=== PATIENT | female | born 1985 | race African-American/Black ===

== ENCOUNTER 2016-10-21 08:18 | Emergency (ER) | payer OTHER ==
[2016-10-21 08:31] VITALS: BP 133/84; PULSE 86; TEMP 98.2; BMI 31.0
[2016-10-21] MEDS ORDERED: ALBUTEROL SO4 0.083% IH SOL 2.5 MG/3 ML VIAL.NEB. NEB ONE (08:50)
--- NOTE | 2016-10-21 08:54 | PDOC ---
History of Present Illness - General Chief Complaint: Cold Symptoms Stated Complaint: HEADACHE, CONGESTION, COUGH Time Seen by Provider: 10/21/16 08:33 History Source: Patient Exam Limitations: No Limitations - History of Present Illness Initial Comments: 10/21/16 08:51 31 yr female c/o 3 days headache stuffy nose body aches, cough and left ear pain. Pt states she took advil last night and mary alice seltzer . Pt denies fever, no vomiting or chills. LMP last month. Severity: reports: mild Past History - Past Medical History Allergies/Adverse Reactions: Allergies Allergy/AdvReac Type Severity Reaction Status Date / Time ceftriaxone sodium Allergy Verified 10/21/16 08:26 [From Rocephin] hydrocodone bitartrate Allergy Itching Verified 10/21/16 08:26 [From Vicodin] all fruits Allergy Uncoded 10/21/16 08:26 Home Medications: Ambulatory Orders Amoxicillin/Potassium Clav [Augmentin 875-125 Tablet] 1 each PO BID #20 tablet 10/21/16 Fluticasone Prop 0.05% Nasal [Flonase -] 1 - 2 spray NS DAILY #1 spray.pump 04/01 Asthma: Yes Suicide Attempt (Hx): No - Immunization History Immunization Up to Date: Yes - Psycho/Social/Smoking Cessation Hx Anxiety: No Suicidal Ideation: No Smoking Status: Yes Smoking History: Former smoker Years of Tobacco Use: 8 Have you smoked in the past 12 months: Yes Number of Cigarettes Smoked Daily: 1 If you are a former smoker, when did you quit?: 2016 Cigars Per Day: 0 Information on smoking cessation initiated: Yes 'Breaking Loose' booklet given: 04/21/14 Hx Alcohol Use: No Drug/Substance Use Hx: No Substance Use Type: Alcohol Hx Substance Use Treatment: No Respiratory Specific PMHX - Complaint Specific PMHX Bronchitis: Yes Pneumonia: Yes Review of Systems - Review of Systems Able to Perform ROS?: Yes Is the patient limited Urdu proficient: No Constitutional: Yes: Symptoms Reported HEENTM: Yes: Symptoms Reported Respiratory: Yes: Symptoms reported *Physical Exam - Vital Signs Last Vital Signs Temp Pulse Resp BP Pulse Ox 98.2 F 86 16 133/84 96 10/21/16 08:21 10/21/16 08:21 10/21/16 08:21 10/21/16 08:21 10/21/16 08:21 - Physical Exam General Appearance: Yes: Nourished, Appropriately Dressed HEENT: positive: EOMI, MARLON, Normal Voice, Pharyngeal Erythema, Nasal Congestion. negative: Tonsillar Exudate, Tonsillar Erythema Neck: positive: Supple. negative: Tender, Lymphadenopathy (R), Lymphadenopathy (L) Respiratory/Chest: positive: Chest Tender, Lungs Clear, Normal Breath Sounds Cardiovascular: positive: Regular Rhythm, Regular Rate Gastrointestinal/Abdominal: positive: Normal Bowel Sounds, Soft. negative: Tender Musculoskeletal: positive: Normal Inspection Extremity: positive: Normal Capillary Refill, Normal Inspection, Normal Range of Motion Integumentary: positive: Normal Color, Dry, Warm Neurologic: positive: Fully Oriented, Alert, Normal Mood/Affect, Normal Response , Motor Strength 5/5 *DC/Admit/Observation/Transfer Diagnosis at time of Disposition: Acute maxillary sinusitis Qualifiers: Recurrence: non-recurrent Qualified Code(s): J01.00 - Acute maxillary sinusitis , unspecified - Discharge Dispostion Disposition: HOME Condition at time of disposition: Good - Prescriptions Prescriptions: Amoxicillin/Potassium Clav [Augmentin 875-125 Tablet] 1 each PO BID #20 tablet Fluticasone Prop 0.05% Nasal [Flonase -] 1 - 2 spray NS DAILY #1 spray.pump - Patient Instructions Additional Instructions: take Augmentin as directed for sinus infection use the flonase as diorected to help with nasal congestion take motrin every 8hrs for pain or fever 600-800mg drink pleanty of water increase vitamin c and zinc in your diet to boost immune system follow with ENT if any worsening symptoms
[2016-10-21] MEDS ORDERED: KETOROLAC TROMETHAMINE 60 MG/2 ML VIAL IM ONE (09:00)
[2016-10-21] MEDS ORDERED: PSEUDOEPHEDRINE HCL 60 MG TABLET PO SCH (09:00)
[2016-10-21] MEDS ORDERED: PSEUDOEPHEDRINE HCL 60 MG TABLET ONE (09:03)
[2016-10-21] MEDS ORDERED: KETOROLAC TROMETHAMINE 60 MG/2 ML VIAL ONE (09:03)
== END 2016-10-21 09:57 | disposition home or self-care (01) ==
LOC: JER 08:18
DX: J01.00 Acute maxillary sinusitis, unspecified (principal); Z87.891 Personal history of nicotine dependence; J45.909 Unspecified asthma, uncomplicated
CPT/HCPCS: 71020-TC; 84703; 87804; 99281-25

== ENCOUNTER 2017-03-31 12:59 | Emergency (ER) | payer OTHER ==
[2017-03-31 13:03] VITALS: BP 113/83; PULSE 74; TEMP 98; BMI 30.8
[2017-03-31] MEDS ORDERED: SODIUM CHLORIDE 1,000 ML IV STA (13:42)
[2017-03-31] MEDS ORDERED: METOCLOPRAMIDE HCL INJECTION 10 MG/2 ML VIAL IVPB ONE (13:45)
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
[2017-03-31 13:56] LABS: BASOPHIL 1.1 % (0-2.0); EOSINOPHIL 4.3 % (0-4.5); MCH 31.2 pg (25.7-33.7); MCHC 32.8 g/dl (32.0-36.0); MEAN CELL VOLUME 95.3 fl (80-96); MEAN PLT VOLUME 9.2 fl (7.5-11.1); NEUTROPHILS 47.7 % (42.8-82.8); PLATELET COUNT 353 K/MM3 (134-434); WHITE BLOOD COUNT 9.6 K/mm3 (4.0-10.0)
[2017-03-31] MEDS ORDERED: METOCLOPRAMIDE HCL INJECTION 10 MG/2 ML VIAL ONE (13:56)
[2017-03-31 14:26] LABS: ALK PHOS 83 U/L (45-117); ANION GAP 9 (8-16); BILIRUBIN,TOTAL 0.4 mg/dL (0.2-1.0); CALCIUM 9.4 mg/dL (8.5-10.1); CO2 26 mmol/L (21-32); CREATININE 0.6 mg/dL (0.55-1.02); GLUCOSE,RANDOM 85 mg/dL (74-106); SGOT/AST 17 U/L (15-37); SGPT/ALT 28 U/L (12-78); TOT PROT 7.8 g/dl (6.4-8.2)
[2017-03-31 14:27] LABS: URINE APPEARANCE CLEAR; URINE BILIRUBIN NEGATIVE (NEGATIVE); URINE BLOOD NEGATIVE (NEGATIVE); URINE COLOR STRAW; URINE GLUCOSE (UA) NEGATIVE (NEGATIVE); URINE KETONE NEGATIVE (NEGATIVE); URINE LEUK ESTERASE NEGATIVE (NEGATIVE); URINE NITRITE NEGATIVE (NEGATIVE); URINE PROTEIN NEGATIVE (NEGATIVE); URINE UROBILINOGEN NEGATIVE mg/dL (0.2-1.0)
[2017-03-31] MEDS ORDERED: KETOROLAC TROMETHAMINE 30 MG/1 ML VIAL IVPUSH ONE (14:48)
[2017-03-31] MEDS ORDERED: KETOROLAC TROMETHAMINE 30 MG/1 ML VIAL ONE (14:52)
[2017-03-31] MEDS ORDERED: KETOROLAC TROMETHAMINE 30 MG/1 ML VIAL IVPB ONE (14:58)
== END 2017-03-31 15:28 | disposition home or self-care (01) ==
LOC: JERFT 12:59
PROC: 3E0333Z Introduction of Anti-inflammatory into Peripheral Vein, Percutaneous Approach (ICD-10-PCS; principal; 2017-03-31)
PROC: 3E033GC Introduction of Other Therapeutic Substance into Peripheral Vein, Percutaneous Approach (ICD-10-PCS; 2017-03-31)
PROC: 3E0337Z Introduction of Electrolytic and Water Balance Substance into Peripheral Vein, Percutaneous Approach (ICD-10-PCS; 2017-03-31)
DX: R51 Headache (principal)
CPT/HCPCS: 36415; 70450-TC; 80053; 81003; 84703; 85025; 99281-25

== ENCOUNTER 2017-07-28 19:51 | Emergency (ER) | payer OTHER ==
--- NOTE | 2017-07-28 20:04 | PDOC ---
Rapid Medical Evaluation Time Seen by Provider: 07/28/17 20:00 Medical Evaluation: Allergies Allergy/AdvReac Type Severity Reaction Status Date / Time ceftriaxone sodium Allergy Verified 03/31/17 13:04 [From Rocephin] hydrocodone bitartrate Allergy Itching Verified 03/31/17 13:04 [From Vicodin] all fruits Allergy Uncoded 03/31/17 13:04 07/28/17 20:01 The patient presents with a chief complaint of: hoarseness x 2 weeks , cough, hx asthma I have performed a brief in-person evaluation of this patient. Pertinent physical exam findings: no erythema, uvula midline, no thyroidmegaly , noted upper cervical lymphadenopathy, LCTA, vss I have ordered the following: none The patient will proceed to the ED for further evaluation. Discharge Disposition - Diagnosis Upper respiratory infection - Discharge Dispostion Disposition: HOME Condition at time of disposition: Good - Prescriptions Prescriptions: Methylprednisolone [Medrol Dose Aldo] 4 mg PO ASDIR #21 tablet - Referrals Referrals: Sean Mcpherson [Primary Care Provider] - - Patient Instructions Printed Discharge Instructions: DI for Viral Upper Respiratory Infection -- Adult Additional Instructions: Rest, drink plenty of fluids and take medications as prescribed. - Post Discharge Activity
[2017-07-28 20:06] VITALS: BP 110/69; PULSE 82; TEMP 98.3; BMI 30.8
[2017-07-28] MEDS ORDERED: IBUPROFEN 400 MG TABLET (FP) PO ONE ×2 (20:17→20:19)
--- NOTE | 2017-07-28 20:18 | PDOC ---
History of Present Illness - General Chief Complaint: Sore Throat Stated Complaint: PAIN Time Seen by Provider: 07/28/17 20:00 History Source: Patient - History of Present Illness Timing/Duration: reports: other (2 weeks) Associated Symptoms: reports: sore throat. denies: cough, earache, facial pain , fever/chills, nasal congestion, nasal drainage, wheezing Past History - Past Medical History Allergies/Adverse Reactions: Allergies Allergy/AdvReac Type Severity Reaction Status Date / Time ceftriaxone sodium Allergy Verified 07/28/17 20:03 [From Rocephin] hydrocodone bitartrate Allergy Itching Verified 07/28/17 20:03 [From Vicodin] all fruits Allergy Uncoded 03/31/17 13:04 Home Medications: Ambulatory Orders Methylprednisolone [Medrol Dose Aldo] 4 mg PO ASDIR #21 tablet 07/28/17 Asthma: Yes COPD: No - Immunization History Immunization Up to Date: Yes - Suicide/Smoking/Psychosocial Hx Smoking Status: Yes Smoking History: Never smoked Years of Tobacco Use: 8 Have you smoked in the past 12 months: No Number of Cigarettes Smoked Daily: 1 If you are a former smoker, when did you quit?: 9 months Cigars Per Day: 0 Information on smoking cessation initiated: No 'Breaking Loose' booklet given: 04/21/14 Hx Alcohol Use: No Drug/Substance Use Hx: No Substance Use Type: None Hx Substance Use Treatment: No Respiratory Specific PMHX - Complaint Specific PMHX Bronchitis: Yes Pneumonia: Yes Review of Systems - Review of Systems Constitutional: No: Chills, Fever HEENTM: Yes: Throat Pain. No: Ear Pain, Nose Congestion Respiratory: No: Cough, Shortness of Breath, Wheezing *Physical Exam - Vital Signs Last Vital Signs Temp Pulse Resp BP Pulse Ox 98.3 F 82 20 110/69 97 07/28/17 20:04 07/28/17 20:04 07/28/17 20:04 07/28/17 20:04 07/28/17 20:04 - Physical Exam General Appearance: Yes: Appropriately Dressed. No: Apparent Distress HEENT: positive: EOMI, Normal Voice, TMs Normal, Other (b/l tonsillar enlargement). negative: Tonsillar Exudate Neck: positive: Supple. negative: Lymphadenopathy (R), Lymphadenopathy (L) Respiratory/Chest: positive: Lungs Clear, Normal Breath Sounds. negative: Respiratory Distress Integumentary: positive: Dry, Warm Neurologic: positive: Fully Oriented, Alert, Normal Mood/Affect Medical Decision Making - Medical Decision Making 07/28/17 20:13 31-year-old female, no significant 31-year-old female, history of asthma, here with sore throat with hoarseness 2 weeks. No fever or chills. No shortness of breath or wheezing. Patient well-appearing and stable with possible tonsillar enlargement bilaterally. No exudates or uvular deviation. Rapid strep pending though m/l viral. Will consider Medrol Dosepak upon discharge 07/28/17 20:20 07/28/17 21:05 Rapid strep negative. DC with Medrol Dosepak *DC/Admit/Observation/Transfer Diagnosis at time of Disposition: Upper respiratory infection Qualifiers: URI type: unspecified viral URI Qualified Code(s): J06.9 - Acute upper respiratory infection, unspecified - Discharge Dispostion Disposition: HOME Condition at time of disposition: Good - Prescriptions Prescriptions: Methylprednisolone [Medrol Dose Aldo] 4 mg PO ASDIR #21 tablet - Referrals Referrals: Sean Mcpherson [Primary Care Provider] - - Patient Instructions Printed Discharge Instructions: DI for Viral Upper Respiratory Infection -- Adult Additional Instructions: Rest, drink plenty of fluids and take medications as prescribed. - Post Discharge Activity
== END 2017-07-28 21:06 | disposition home or self-care (01) ==
LOC: JERFT 19:51
DX: J06.9 Acute upper respiratory infection, unspecified (principal); B97.89 Other viral agents as the cause of diseases classified elsewhere
CPT/HCPCS: 87070; 87077; 87430; 99281-25

== ENCOUNTER 2017-12-15 23:17 | Emergency (ER) | payer OTHER ==
[2017-12-15 23:31] VITALS: BP 107/78; PULSE 96; TEMP 98.5; BMI 31.0
--- NOTE | 2017-12-16 00:33 | PDOC ---
History of Present Illness - General History Source: Patient Exam Limitations: No Limitations - History of Present Illness Initial Comments: 12/16/17 00:45 The patient is a 32 year old female with past medical history of asthma and ICU admission presents to the emergency department with dyspnea since 3-4 days ago. The patient reports associated symptoms of chest pain (tight in severity), subjective fever, and productive cough with light yellow-green sputum. The patient reports a burning sensation radiating from the throat to the chest but denies its acid reflux. The patient states taking amoxicillin and ibuprofen without any relief. The patient reports an episode of acid reflux about a week ago which resolved on its own. The patient states she pick her son up from school today due to son experiencing symptoms of cough and headaches. Denies any history of intubation. Allergies: Rocephin Social History: The patient reports occasional use of alcohol. Denies history of smoking or recreational drugs. <Trena Tellez - Last Filed: 12/16/17 01:35> <John Lai - Last Filed: 12/22/17 07:19> - General Chief Complaint: Asthma Stated Complaint: ASTHMA Time Seen by Provider: 12/16/17 00:32 Past History <Trena Tellez - Last Filed: 12/16/17 01:35> - Past Medical History Asthma: Yes COPD: No - Immunization History Immunization Up to Date: Yes - Suicide/Smoking/Psychosocial Hx Smoking Status: Yes Smoking History: Never smoked Years of Tobacco Use: 8 Have you smoked in the past 12 months: No Number of Cigarettes Smoked Daily: 1 If you are a former smoker, when did you quit?: 9 months Cigars Per Day: 0 Information on smoking cessation initiated: No 'Breaking Loose' booklet given: 04/21/14 Hx Alcohol Use: Yes Drug/Substance Use Hx: No Substance Use Type: None Hx Substance Use Treatment: No <John Lai - Last Filed: 12/22/17 07:19> - Past Medical History Allergies/Adverse Reactions: Allergies Allergy/AdvReac Type Severity Reaction Status Date / Time ceftriaxone sodium Allergy Verified 07/28/17 20:03 [From Rocephin] hydrocodone bitartrate Allergy Itching Verified 07/28/17 20:03 [From Vicodin] all fruits Allergy Uncoded 03/31/17 13:04 Home Medications: Ambulatory Orders Albuterol Sulfate Inhaler - [Ventolin HFA Inhaler -] 2 inh IH Q6H #1 inh Albuterol Sulfate Inhaler - [Ventolin Hfa Inhaler -] 1 - 2 inh PO QID 12/16/17 Cetirizine HCl [Zyrtec -] 10 mg PO DAILY 12/16/17 Methylprednisolone [Medrol Dose Aldo] 4 mg PO ASDIR #21 tablet 12/16/17 Mometasone/Formoterol [Dulera 100 Mcg/5 Mcg Inhaler] 2 inh IH BID 12/16/17 Respiratory Specific PMHX - Complaint Specific PMHX Bronchitis: Yes Pneumonia: Yes <John Lai - Last Filed: 12/22/17 07:19> Review of Systems - Review of Systems Able to Perform ROS?: Yes Comments:: 12/16/17 00:47 CONSTITUTIONAL: (+) subjective fever, no chills, no fatigue EYES: No visual changes ENT: No ear pain, no sore throat CARDIOVASCULAR: No chest pain, no palpitations RESPIRATORY: (+) SOB, chest pain/tightness, chest burning and productive cough. GI: No abdominal pain, no nausea, no vomiting, no constipation, no diarrhea GENITOURINARY: No dysuria, no frequency, no hematuria MUSKULOSKELETAL: No backpain, no joint pain, no myalgias SKIN: No rash NEURO: No headache <Trena Tellez - Last Filed: 12/16/17 01:35> *Physical Exam - Vital Signs Last Vital Signs Temp Pulse Resp BP Pulse Ox 98.5 F 96 H 21 107/78 98 12/15/17 23:25 12/15/17 23:25 12/15/17 23:25 12/15/17 23:25 12/15/17 23:25 - Physical Exam Comments: 12/16/17 00:48 CONSTITUTIONAL: (+) tachypneic and Dyspneic. well-nourished; in mild apparent distress HEAD: Normocephalic; atraumatic EYES: PERRL; EOM intact ENMT: External appears normal; normal oropharynx NECK: Supple; non-tender; no cervical lymphadenopathy CARD: Normal S1, S2; no murmurs, rubs, or gallops RESP: (+) Decreased air entry bilaterally. (+) End expiratory wheezing bilaterally. no rhonchi, or rales ABD: Soft, non-distended; non-tender; no palpable organomegaly, no palpable hernias EXT: Normal ROM in all four extremities; non-tender to palpation; distal pulses intact SKIN: Warm, dry, no rash NEURO: No focal neurological deficiencies. <Trena Tellez - Last Filed: 12/16/17 01:35> - Vital Signs Last Vital Signs Temp Pulse Resp BP Pulse Ox 98.5 F 96 H 21 107/78 98 12/15/17 23:25 12/15/17 23:25 12/15/17 23:25 12/15/17 23:25 12/15/17 23:25 <John Lai - Last Filed: 12/22/17 07:19> ED Treatment Course - LABORATORY CBC & Chemistry Diagram: 12/16/17 01:30 12/16/17 01:30 <John Lai - Last Filed: 12/22/17 07:19> Medical Decision Making - Medical Decision Making 12/16/17 01:58 Patient is a 32-year-old female with history of asthma (no history of intubations, however, history of ICU admission) who presents with signs and symptoms of acute asthma exacerbation likely precipitated by an acute infection. In the ER, patient is awake and alert, tachypneic and dyspneic initial evaluation, speaking in short phrases only, with decreased air entry bilaterally and expiratory wheezing bilaterally. Patient is afebrile with oxygen saturation of 96-97% room air. Patient's received continuous Combivent therapy, prednisone-50 mg by mouth as well as magnesium sulfate-2 g IV. We'll obtain chest x-ray to rule out pneumonia. We'll continue with albuterol and Atrovent as needed. EKG shows no evidence acute pathology, prolonged QTC is noted. Will obtain CBC/CMP to evaluate for electrolyte abnormalities. pt ruled out for PE by PERC rule. Will endorse to Dr. martinez for final disposition. <John Lai - Last Filed: 12/22/17 07:19> *DC/Admit/Observation/Transfer <Trena Tellez - Last Filed: 12/16/17 01:35> - Attestations Physician Attestion: 12/16/17 01:58 The documentation was prepared by the scribe under my direct supervision. I have reviewed the documentation which correctly represents the findings, medical decision-making and critical action taken by me. <John Lai - Last Filed: 12/22/17 07:19> Diagnosis at time of Disposition: Exacerbation of asthma - Discharge Dispostion Disposition: HOME Condition at time of disposition: Improved - Prescriptions Prescriptions: Albuterol Sulfate Inhaler - [Ventolin HFA Inhaler -] 2 inh IH Q6H #1 inh Methylprednisolone [Medrol Dose Aldo] 4 mg PO ASDIR #21 tablet - Referrals Referrals: Sean Mcpherson [Primary Care Provider] - - Patient Instructions Printed Discharge Instructions: Asthma -- Adult - Post Discharge Activity Forms/Work/School Notes: Back to Work
[2017-12-16] MEDS ORDERED: ALBUTEROL SO4 2.5/IPRATROPIUM 0.5 INH SOL 3 ML VIAL.NEB. NEB ONE (00:37)
[2017-12-16] MEDS ORDERED: predniSONE 20 MG TABLET (UD) PO ONE (00:38)
[2017-12-16] MEDS ORDERED: IBUPROFEN 400 MG TABLET (FP) PO ONE ×2 (00:45→00:46)
[2017-12-16] MEDS ORDERED: RANITIDINE HCL 150 MG TABLET (FP) PO ONE (01:22)
[2017-12-16] MEDS ORDERED: MAGNESIUM SULF 50% (8.12 MEQ/2 ML-1 GM VIAL) IVPB ONE (01:22)
[2017-12-16] MEDS ORDERED: MAG HYDROX/AL HYDROX/SIMETH -MYLANTA- ORAL SUSPENSION PO ONE (01:22)
[2017-12-16] MEDS ORDERED: MAG HYDROX/AL HYDROX/SIMETH 30 ML UNIT-DOSE CUP ONE (01:23)
[2017-12-16] MEDS ORDERED: FAMOTIDINE 20 MG/50 ML IVPB 20 MG/50 ML MG IVPB ONE (01:23)
[2017-12-16] MEDS ORDERED: RANITIDINE HCL 150 MG TABLET (FP) ONE (01:23)
[2017-12-16] MEDS ORDERED: MAGNESIUM SULF 50% (8.12 MEQ/2 ML-1 GM VIAL) ONE (01:23)
[2017-12-16 01:44] LABS: BASO % 0.9 % (0-2.0); EOS % 6.4 % (0-4.5); HEMATOCRIT 38.5 % (32.4-45.2); HEMOGLOBIN 13.1 GM/dL (10.7-15.3); LYMPH % 33.9 % (8-40); MCH 32.3 pg (25.7-33.7); MCHC 34.1 g/dl (32.0-36.0); MEAN CELL VOLUME 94.7 fl (80-96); MEAN PLT VOLUME 9.2 fl (7.5-11.1); MONO % 10.5 % (3.8-10.2); NEUT % 48.3 % (42.8-82.8); PLATELET COUNT 252 K/MM3 (134-434); RBC 4.06 M/mm3 (3.60-5.2); RDW 12.1 % (11.6-15.6); WHITE BLOOD COUNT 7.1 K/mm3 (4.0-10.0)
[2017-12-16] MEDS ORDERED: ALBUTEROL SO4 0.083% IH SOL 2.5 MG/3 ML VIAL.NEB. NEB ONE ×2 (02:00→02:08)
[2017-12-16 02:04] LABS: ALBUMIN 3.9 g/dl (3.4-5.0); ANION GAP 13 (8-16); BILIRUBIN,TOTAL 0.5 mg/dL (0.2-1.0); BLOOD UREA NITROGEN 13 mg/dL (7-18); CHLORIDE 102 mmol/L (98-107); CO2 21 mmol/L (21-32); CREATININE 0.8 mg/dL (0.55-1.02); GLUCOSE,RANDOM 105 mg/dL (74-106); SGPT/ALT 16 U/L (12-78); SODIUM 136 mmol/L (136-145); TOT PROT 7.8 g/dl (6.4-8.2)
[2017-12-16 02:05] LABS: ALK PHOS 72 U/L (45-117)
[2017-12-16 02:06] LABS: MAGNESIUM 1.9 mg/dL (1.8-2.4); POTASSIUM 3.6 mmol/L (3.5-5.1); SGOT/AST 18 U/L (15-37)
--- NOTE | 2017-12-16 03:29 | PDOC ---
*Physical Exam - Vital Signs Last Vital Signs Temp Pulse Resp BP Pulse Ox 98.5 F 96 H 21 107/78 97 12/15/17 23:25 12/15/17 23:25 12/15/17 23:25 12/15/17 23:25 12/16/17 01:52 ED Treatment Course - LABORATORY CBC & Chemistry Diagram: 12/16/17 01:30 12/16/17 01:30 - ADDITIONAL ORDERS Additional order review: Laboratory Results 12/16/17 12/16/17 01:30 01:00 Sodium 136 Potassium 3.6 Chloride 102 Carbon Dioxide 21 Anion Gap 13 BUN 13 Creatinine 0.8 Creat Clearance w eGFR > 60 Random Glucose 105 Calcium 9.0 Magnesium 1.9 Total Bilirubin 0.5 D AST 18 ALT 16 Alkaline Phosphatase 72 Total Protein 7.8 Albumin 3.9 Urine HCG, Qual Negative 12/16/17 01:30 RBC 4.06 MCV 94.7 MCHC 34.1 RDW 12.1 MPV 9.2 Neutrophils % 48.3 Lymphocytes % 33.9 Monocytes % 10.5 H Eosinophils % 6.4 H Basophils % 0.9 - Medications Given in the ED: ED Medications Discontinued Medications Generic Name Dose Route Start Last Admin Trade Name Freq PRN Reason Stop Dose Admin Al Hydroxide/Mg Hydroxide 30 ml 12/16/17 01:22 12/16/17 01:40 Mylanta Suspension - PO 12/16/17 01:23 30 ml ONCE ONE Administration Albuterol Sulfate 1 amp 12/16/17 02:00 12/16/17 02:32 Ventolin 0.083% Nebulizer Soln - NEB 12/16/17 02:01 1 amp ONCE ONE Administration Albuterol/Ipratropium 3 amp 12/16/17 00:37 12/16/17 00:40 Duoneb - NEB 12/16/17 00:38 3 amp ONCE ONE Administration Ibuprofen 400 mg 12/16/17 00:46 12/16/17 01:20 Motrin - PO 12/16/17 00:47 400 mg ONCE ONE Administration Magnesium Sulfate 2 gm 12/16/17 01:22 12/16/17 01:40 Magnesium Sulfate IVPB 12/16/17 01:23 2 gm ONCE ONE Administration Prednisone 50 mg 12/16/17 00:38 12/16/17 00:40 Deltasone - PO 12/16/17 00:39 50 mg ONCE ONE Administration Ranitidine HCl 150 mg 12/16/17 01:22 12/16/17 01:40 Zantac - PO 12/16/17 01:23 150 mg ONCE ONE Administration Medical Decision Making - Medical Decision Making 12/16/17 03:28 Pt feels better. NO dyspnea of exertion or conversational dyspnea, Will discharge *DC/Admit/Observation/Transfer Diagnosis at time of Disposition: Exacerbation of asthma - Discharge Dispostion Disposition: HOME Condition at time of disposition: Improved Admit: No - Referrals Referrals: Sean Mcpherson [Primary Care Provider] - - Patient Instructions Printed Discharge Instructions: Asthma -- Adult - Post Discharge Activity Forms/Work/School Notes: Back to Work
--- NOTE | 2017-12-16 11:26 | EKG ---
Test Reason : Blood Pressure : / mmHG Vent. Rate : 096 BPM Atrial Rate : 096 BPM P-R Int : 124 ms QRS Dur : 078 ms QT Int : 390 ms P-R-T Axes : 067 067 029 degrees QTc Int : 492 ms NORMAL SINUS RHYTHM WITH SINUS ARRHYTHMIA POSSIBLE LEFT ATRIAL ENLARGEMENT PROLONGED QT ABNORMAL ECG WHEN COMPARED WITH ECG OF 20-DEC-2015 09:04, NO SIGNIFICANT CHANGE WAS FOUND Confirmed by DRAGAN BIANCHI, LATONIA ([id number]) on 12/16/2017 11:26:44 AM Referred By: Confirmed By:LATONIA ARCHIBALD MD
== END 2017-12-16 03:43 | disposition home or self-care (01) ==
LOC: JER 23:17
PROC: 3E0F7GC Introduction of Other Therapeutic Substance into Respiratory Tract, Via Natural or Artificial Opening (ICD-10-PCS; principal; 2017-12-15)
PROC: 3E033GC Introduction of Other Therapeutic Substance into Peripheral Vein, Percutaneous Approach (ICD-10-PCS; 2017-12-15)
DX: J45.41 Moderate persistent asthma with (acute) exacerbation (principal); Z87.891 Personal history of nicotine dependence
CPT/HCPCS: 36415; 71046-TC-FY; 80053; 83735; 84703; 85025; 93005; 93010; 99282-25; J7620

== ENCOUNTER 2018-04-27 15:39 | Emergency (ER) | payer OTHER ==
[2018-04-27 15:45] VITALS: BP 115/71; PULSE 81; TEMP 98.2; BMI 31.4
--- NOTE | 2018-04-27 16:16 | PDOC ---
History of Present Illness - General Chief Complaint: Vaginal Sxs Stated Complaint: FATIGUE, WHITE VAG DISCHARGE Time Seen by Provider: 04/27/18 15:44 History Source: Patient Exam Limitations: No Limitations - History of Present Illness Travel History: No Initial Comments: 04/27/18 16:14 32 YR FEMALE WITH c/o white thin vaginal discharge and feeling "fatigued" for one month. Pt has not seen her doctor. Pt has history of asthma, no abd pain no diarrhea. Pt has IUD for 2 yrs suffers from chronic BV. no abnormal vaginal or rectal bleeding. Timing/Duration: reports: constant Quality: reports: mild Pain Radiation: reports: no radiation Activities at Onset: reports: none Past History - Past Medical History Allergies/Adverse Reactions: Allergies Allergy/AdvReac Type Severity Reaction Status Date / Time ceftriaxone sodium Allergy Verified 04/27/18 15:57 [From Rocephin] hydrocodone bitartrate Allergy Itching Verified 04/27/18 15:57 [From Vicodin] all fruits Allergy Uncoded 04/27/18 15:57 Home Medications: Ambulatory Orders metroNIDAZOLE 0.75% VAG. GEL [Metrogel 0.75% *Vaginal Gel* -] 1 applic VG HS #5 tube 04/27/18 Asthma: Yes COPD: No DVT: No - Immunization History Immunization Up to Date: Yes - Suicide/Smoking/Psychosocial Hx Smoking Status: Yes Smoking History: Never smoked Years of Tobacco Use: 8 Have you smoked in the past 12 months: No Number of Cigarettes Smoked Daily: 0 If you are a former smoker, when did you quit?: 9 months Cigars Per Day: 0 Information on smoking cessation initiated: Yes 'Breaking Loose' booklet given: 04/21/14 Hx Alcohol Use: No Drug/Substance Use Hx: No Substance Use Type: None Hx Substance Use Treatment: No Abd/GI Specific PMHX - Complaint Specific PMHX Colitis: No GERD: No GI Ulcer Disease: No Review of Systems - Review of Systems Able to Perform ROS?: Yes Is the patient limited Kyrgyz proficient: No Constitutional: No: Symptoms Reported HEENTM: No: Symptoms Reported Respiratory: No: Symptoms reported Cardiac (ROS): No: Symptoms Reported ABD/GI: No: Symptoms Reported : Yes: Symptoms Reported *Physical Exam - Vital Signs Last Vital Signs Temp Pulse Resp BP Pulse Ox 98.2 F 81 18 115/71 97 04/27/18 15:41 04/27/18 15:41 04/27/18 15:41 04/27/18 15:41 04/27/18 15:41 - Physical Exam General Appearance: Yes: Nourished, Appropriately Dressed HEENT: positive: EOMI, MARLON, TMs Normal, Pharynx Normal, Other (conjunctiva pink ) Neck: positive: Supple. negative: Tender Respiratory/Chest: positive: Lungs Clear, Normal Breath Sounds. negative: Wheezing Cardiovascular: positive: Regular Rhythm, Regular Rate Female Pelvic Exam: positive: discharge (scant white). negative: CMT, adnexal tenderness Gastrointestinal/Abdominal: positive: Normal Bowel Sounds, Soft. 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
[2018-04-27 16:28] LABS: BASO % 0.9 % (0-2.0); EOS % 5.6 % (0-4.5); HEMATOCRIT 38.3 % (32.4-45.2); HEMOGLOBIN 12.8 GM/dL (10.7-15.3); LYMPH % 31.2 % (8-40); MCH 31.6 pg (25.7-33.7); MCHC 33.5 g/dl (32.0-36.0); MEAN CELL VOLUME 94.4 fl (80-96); MEAN PLT VOLUME 9.2 fl (7.5-11.1); MONO % 9.1 % (3.8-10.2); NEUT % 53.2 % (42.8-82.8); PLATELET COUNT 313 K/MM3 (134-434); RBC 4.05 M/mm3 (3.60-5.2); RDW 12.3 % (11.6-15.6); WHITE BLOOD COUNT 10.4 K/mm3 (4.0-10.0)
[2018-04-27 16:34] LABS: URINE APPEARANCE CLEAR; URINE BILIRUBIN NEGATIVE (<2.0 mg/dL); URINE COLOR YELLOW; URINE GLUCOSE (UA) NEGATIVE (NEGATIVE); URINE KETONE NEGATIVE (NEGATIVE); URINE NITRITE NEGATIVE (NEGATIVE); URINE PROTEIN NEGATIVE (NEGATIVE)
[2018-04-27 16:35] LABS: HCG,QUALITATIVE URINE Negative; URINE LEUK ESTERASE 1+ (NEGATIVE)
[2018-04-27 16:38] LABS: EPI CELLS FEW /HPF (FEW); URINE BACTERIA RARE /hpf (NONE SEEN); URINE MUCUS RARE
[2018-04-27 16:57] LABS: ALBUMIN 3.6 g/dl (3.4-5.0); ANION GAP 6 MMOL/L (8-16); BILIRUBIN,TOTAL 0.4 mg/dL (0.2-1.0); BLOOD UREA NITROGEN 14 mg/dL (7-18); CHLORIDE 104 mmol/L (98-107); CO2 27 mmol/L (21-32); CREATININE 0.7 mg/dL (0.55-1.02); GLUCOSE,RANDOM 84 mg/dL (74-106); POTASSIUM 4.2 mmol/L (3.5-5.1); SGOT/AST 13 U/L (15-37); SGPT/ALT 23 U/L (12-78); SODIUM 137 mmol/L (136-145); TOT PROT 7.3 g/dl (6.4-8.2)
[2018-04-27 16:58] LABS: ALK PHOS 75 U/L (45-117)
== END 2018-04-27 17:08 | disposition home or self-care (01) ==
LOC: JERFT 15:39
DX: R53.83 Other fatigue (principal); N89.8 Other specified noninflammatory disorders of vagina; Z87.891 Personal history of nicotine dependence
CPT/HCPCS: 36415; 80053; 81003; 81015; 84703; 85025; 87070; 87086; 87205; 99281-25

== ENCOUNTER 2018-07-12 22:32 | Emergency (ER) | payer OTHER ==
[2018-07-12 22:43] VITALS: BMI 30.8
--- NOTE | 2018-07-12 23:25 | PDOC ---
History of Present Illness - General Chief Complaint: Injury Stated Complaint: LACERATION Time Seen by Provider: 07/12/18 23:25 History Source: Patient - History of Present Illness Initial Comments: 07/13/18 01:28 32 year old female c/o left thumb jammed in the door reports that proximal end of nail lifted off the bed. denies numbness to distal end. last tetanus up to date. no pmhx Past History - Past Medical History Allergies/Adverse Reactions: Allergies Allergy/AdvReac Type Severity Reaction Status Date / Time ceftriaxone sodium Allergy Verified 07/12/18 22:43 [From Rocephin] hydrocodone bitartrate Allergy Itching Verified 07/12/18 22:43 [From Vicodin] all fruits Allergy Uncoded 07/12/18 22:43 Home Medications: Ambulatory Orders Albuterol 0.083% Nebulizer Jazzmine [Ventolin 0.083% Nebulizer Soln -] 1 neb NEB Q6H PRN 07/13/18 Ibuprofen 600 mg PO QID PRN #20 tablet 07/13/18 Mometasone/Formoterol [Dulera 100 Mcg/5 Mcg Inhaler] 2 inh IH BID 07/13/18 Oxycodone HCl/Acetaminophen [Percocet 5-325 mg Tablet] 1 tab PO Q6H PRN #5 tablet MDD 4 07/13/18 Sulfamethoxazole/Trimethoprim [Bactrim Ds -] 1 tab PO BID #10 tablet 07/13/18 Asthma: Yes COPD: No DVT: No - Immunization History Immunization Up to Date: Yes - Suicide/Smoking/Psychosocial Hx Smoking Status: Yes Smoking History: Never smoked Years of Tobacco Use: 8 Have you smoked in the past 12 months: No Number of Cigarettes Smoked Daily: 0 If you are a former smoker, when did you quit?: 9 months Cigars Per Day: 0 Information on smoking cessation initiated: No 'Breaking Loose' booklet given: 04/21/14 Hx Alcohol Use: No Drug/Substance Use Hx: No Substance Use Type: None Hx Substance Use Treatment: No Review of Systems - Review of Systems Able to Perform ROS?: Yes Is the patient limited Ecuadorean proficient: No Integumentary: Yes: Other (nail avulsion) *Physical Exam - Vital Signs Last Vital Signs Temp Pulse Resp BP Pulse Ox 98.2 F 90 16 124/89 100 07/12/18 22:41 11/27/18 22:41 07/12/18 22:41 07/12/18 22:41 07/12/18 22:41 - Physical Exam General Appearance: Yes: Appropriately Dressed Extremity: positive: Other (left thumb nail avulsion. bleeding controlled) Integumentary: positive: Normal Color, Dry, Warm Neurologic: positive: Fully Oriented, Alert, Normal Mood/Affect Moderate Sedation - Procedure Monitoring Vital Signs: Procedure Monitoring Vital Signs Temperature 98.2 F 07/12/18 22:41 Pulse Rate 90 07/12/18 22:41 Respiratory Rate 16 07/12/18 22:41 Blood Pressure 124/89 07/12/18 22:41 O2 Sat by Pulse Oximetry (%) 100 07/12/18 22:41 Procedures - Consent Consent obtained: Verbal - Laceration/Wound Repair Left Finger Wound Explored: clean (nail bed pushed out with minimal bleeding around the nail. + distal sensation and pain, full rom. ) Irrigated w/ Saline: Yes Betadine Prep: Yes Anesthesia: 2% Lidocaine Amount of Anesthetic (ccs): 2 Wound Repaired With: Dermabond (applied around scar nail bed) Type of Splint Applied: finger splint Sling Applied: Yes Progress: 07/13/18 01:36 wound irrigated dermabond applied ED Treatment Course - RADIOLOGY Comments: xray negative Progress Note - Progress Note Progress Note: A: nail avulsion P: see procedure note. empirically treated with bactrim due to cephalosporin allergy. *DC/Admit/Observation/Transfer Diagnosis at time of Disposition: Avulsion of nail bed Injury to thumb (nail) Qualifiers: Encounter type: initial encounter Laterality: left Qualified Code(s): S69.92XA - Unspecified injury of left wrist, hand and finger(s), initial encounter - Discharge Dispostion Disposition: HOME Condition at time of disposition: Improved - Prescriptions Prescriptions: Ibuprofen 600 mg PO QID PRN #20 tablet PRN Reason: Pain Oxycodone HCl/Acetaminophen [Percocet 5-325 mg Tablet] 1 tab PO Q6H PRN #5 tablet MDD 4 PRN Reason: Pain Level 6-10 Sulfamethoxazole/Trimethoprim [Bactrim Ds -] 1 tab PO BID #10 tablet - Referrals Referrals: Jose Guadalupe Alexander MD [Staff Physician] - - Patient Instructions Printed Discharge Instructions: DI for Nail Avulsion Injury Additional Instructions: keep wound clean and dry. take Bactrim as prescribed follow up with your hand doctor as soon as possible. monitor for signs of infections increased pain. Additional Instructions: * Please call your personal physician to report your Emergency Department visit and to report your progress, if any. * If there is no improvement in symptoms in 2 days call your physician. * Return to the Emergency Department for any worsening symptoms. - Post Discharge Activity Forms/Work/School Notes: Back to Work
[2018-07-12] MEDS ORDERED: KETOROLAC TROMETHAMINE 30 MG/1 ML VIAL IM ONE (23:56)
[2018-07-13] MEDS ORDERED: KETOROLAC TROMETHAMINE 30 MG/1 ML VIAL ONE (00:22)
[2018-07-13] MEDS ORDERED: LIDOCAINE HCL 2% (50ML VIAL) SQ ONE (00:32)
[2018-07-13] MEDS ORDERED: LIDOCAINE HCL 2% (20ML MULTI-DOSE VIAL) NR ONE (00:37)
[2018-07-13 02:17] VITALS: BP 118/80; PULSE 88; TEMP 98.5
== END 2018-07-13 02:14 | disposition home or self-care (01) ==
LOC: JER 22:32
PROC: 0HQGXZZ Repair Left Hand Skin, External Approach (ICD-10-PCS; principal; 2018-07-12)
PROC: 2W3HX1Z Immobilization of Left Thumb using Splint (ICD-10-PCS; 2018-07-12)
DX: S61.112A Laceration without foreign body of left thumb with damage to nail, initial encounter (principal); W23.0XXA Caught, crushed, jammed, or pinched between moving objects, initial encounter; Y93.89 Activity, other specified; Y92.89 Other specified places as the place of occurrence of the external cause; Y99.8 Other external cause status
CPT/HCPCS: 12001; 29130; 73140-TC-LT-FY; 99282-25

== ENCOUNTER 2018-10-04 08:27 | Emergency (ER) | payer OTHER ==
[2018-10-04 08:42] VITALS: BP 124/75; PULSE 76; TEMP 98.6; BMI 31.2
--- NOTE | 2018-10-04 08:45 | PDOC ---
History of Present Illness - General Chief Complaint: Eye Problem Stated Complaint: RT EYE SWOLLEN Time Seen by Provider: 10/04/18 08:42 History Source: Patient Exam Limitations: No Limitations - History of Present Illness Initial Comments: 10/04/18 08:44 Pt is a 33 y/o F who presents to the ED with R upper eyelid pain for 3 weeks. Pt states she has seen her PMD for this issue with little relief of her symptoms. She states that the bump on the eye is getting bigger. States that she feels a bump there. Pt is taking erythromycin ointment and using warm water soaks. . Denies fevers, chills, visual changes, diploplia, spots and floaters. Past History - Travel Traveled outside of the country in the last 30 days: No Close contact w/someone who was outside of country & ill: No - Past Medical History Allergies/Adverse Reactions: Allergies Allergy/AdvReac Type Severity Reaction Status Date / Time ceftriaxone sodium Allergy Verified 10/04/18 08:38 [From Rocephin] hydrocodone bitartrate Allergy Itching Verified 10/04/18 08:38 [From Vicodin] all fruits Allergy Uncoded 10/04/18 08:38 Home Medications: Ambulatory Orders Albuterol 0.083% Nebulizer Jazzmine [Ventolin 0.083% Nebulizer Soln -] 1 neb NEB Q6H PRN 07/13/18 Mometasone/Formoterol [Dulera 100 Mcg/5 Mcg Inhaler] 2 inh IH BID 07/13/18 Sulfamethoxazole/Trimethoprim [Bactrim Ds -] 1 tab PO BID #14 tablet 10/04/18 Asthma: Yes COPD: No DVT: No - Immunization History Immunization Up to Date: Yes - Suicide/Smoking/Psychosocial Hx Smoking Status: Yes Smoking History: Never smoked Years of Tobacco Use: 8 Have you smoked in the past 12 months: No Number of Cigarettes Smoked Daily: 0 If you are a former smoker, when did you quit?: 9 months Cigars Per Day: 0 'Breaking Loose' booklet given: 04/21/14 Hx Alcohol Use: No Drug/Substance Use Hx: No Substance Use Type: None Hx Substance Use Treatment: No Review of Systems - Review of Systems Able to Perform ROS?: Yes Comments:: 10/04/18 08:43 CONSTITUTIONAL: Absent: fever, chills, diaphoresis, generalized weakness, malaise, loss of appetite HEENT: Present: pain to R upper eye lid Absent: rhinorrhea, nasal congestion, throat pain, throat swelling, difficulty swallowing, mouth swelling, ear pain, visual Changes CARDIOVASCULAR: Absent: chest pain, loss of consciousness, palpitations, irregular heart rate, peripheral edema RESPIRATORY: Absent: cough, shortness of breath, dyspnea with exertion, orthopnea, wheezing, stridor, hemoptysis GASTROINTESTINAL: Absent: abdominal pain, abdominal distension, nausea, vomiting, diarrhea, constipation, melena, hematochezia GENITOURINARY: Absent: dysuria, frequency, urgency, hesitancy, hematuria, flank pain, genital pain MUSCULOSKELETAL: Absent: myalgia, arthralgia, joint swelling SKIN: Absent: rash, itching, pallor HEMATOLOGIC/IMMUNOLOGIC: Absent: easy bleeding, easy bruising, lymphadenopathy, frequent infections ENDOCRINE: Absent: unexplained weight gain, unexplained weight loss, heat intolerance, cold intolerance NEUROLOGIC: Absent: headache, focal weakness or paresthesias, dizziness, unsteady gait, seizure, mental status changes, bladder or bowel incontinence PSYCHIATRIC: Absent: anxiety, depression, suicidal or homicidal ideation, hallucinations. Is the patient limited Slovak proficient: No *Physical Exam - Vital Signs Last Vital Signs Temp Pulse Resp BP Pulse Ox 98.6 F 76 16 124/75 99 10/04/18 08:38 10/04/18 08:38 10/04/18 08:38 10/04/18 08:38 10/04/18 08:38 - Physical Exam Comments: 10/04/18 08:43 GENERAL: The patient is awake, alert, and fully oriented, in no acute distress. HEAD: Normal with no signs of trauma. EYES: Pupils equal, round and reactive to light, extraocular movements intact, sclera anicteric, conjunctiva clear. Sty to the upper R eyelid with a head. Associated redness surrounding the sty. EXTREMITIES: Normal range of motion, no edema. NEUROLOGICAL: Normal speech, normal gait. PSYCH: Normal mood, normal affect. SKIN: Warm, Dry, normal turgor, no rashes or lesions noted. Moderate Sedation - Procedure Monitoring Vital Signs: Procedure Monitoring Vital Signs Temperature 98.6 F 10/04/18 08:38 Pulse Rate 76 10/04/18 08:38 Respiratory Rate 16 10/04/18 08:38 Blood Pressure 124/75 10/04/18 08:38 O2 Sat by Pulse Oximetry (%) 99 10/04/18 08:38 Medical Decision Making - Medical Decision Making 10/04/18 09:10 Pt is a 33 y/o F who presents to the ED with a sty for three weeks to the R upper eyelid -On exam pt with a sty to the R upper eyelid with the beginning of the formation of a head of pus -Pt on topical abx. Will initiate oral abx at this time as this could be a possible skin infection -Ophthalmology referral given -DC home -I discussed the physical exam findings, ancillary test results and final diagnoses with the patient. I answered all of the patient's questions. The patient was satisfied with the care received and felt comfortable with the discharge plan and treatment plan. The Patient agrees to follow up with the primary care physician/specialist within 24-72 hours. Return precautions were given. *DC/Admit/Observation/Transfer Diagnosis at time of Disposition: Stye external Qualifiers: Laterality: right Eyelid: upper Qualified Code(s): H00.011 - Hordeolum externum right upper eyelid - Discharge Dispostion Disposition: HOME Condition at time of disposition: Stable Decision to Admit order: No - Prescriptions Prescriptions: Sulfamethoxazole/Trimethoprim [Bactrim Ds -] 1 tab PO BID #14 tablet - Referrals Referrals: Yas Valdivia MD [Primary Care Provider] - Alyson Nicolas MD [Staff Physician] - Jose E Dumont MD [Staff Physician] - - Patient Instructions Printed Discharge Instructions: DI for Hordeolum Additional Instructions: You have a stye or infection of the upper lid of your eye. Please take the oral antibiotics twice a day for one week. Continue to do the warm water soaks 4-5 times a day. You may also use a topical antibiotic twice a day. This may drain on its own. Please do not poke or rub the eye He may take Motrin 600 mg every 6 hours as needed for pain. Please follow-up with an director of staff development. A referral has been provided for you. Please also contact your insurance company to find a provider. Return to the ED for any new or worsening symptoms. - Post Discharge Activity Forms/Work/School Notes: Back to Work
== END 2018-10-04 09:15 | disposition home or self-care (01) ==
LOC: JERFT 08:27
DX: H00.011 Hordeolum externum right upper eyelid (principal)
CPT/HCPCS: 99281-25

== ENCOUNTER 2019-01-22 15:23 | Emergency (ER) | payer OTHER ==
[2019-01-22 15:41] VITALS: BP 110/74; PULSE 89; TEMP 98.5; BMI 31.6
[2019-01-22] MEDS ORDERED: ALBUTEROL SO4 2.5/IPRATROPIUM 0.5 INH SOL 3 ML VIAL.NEB. NEB ONE ×2 (15:57→16:00)
[2019-01-22] MEDS ORDERED: predniSONE 20 MG TABLET (UD) PO ONE (15:57)
[2019-01-22] MEDS ORDERED: predniSONE 20 MG TABLET (UD) ONE (16:00)
--- NOTE | 2019-01-22 16:44 | PDOC ---
History of Present Illness - General Chief Complaint: Asthma Stated Complaint: ASTHMA / SOB Time Seen by Provider: 01/22/19 15:45 History Source: Patient Exam Limitations: No Limitations - History of Present Illness Initial Comments: 01/22/19 16:09 33-year-old female presents the emergency room with complaints of difficulty breathing cough and wheezing for the past 2 days. Patient states has been using her inhaler and her nebulizer without improvement. Patient denies fever, chills but states has been coughing for the past week and feels she may have an infectious process. Timing/Duration: reports: other (2) Severity: reports: mild Possible Cause: Yes: occasional episodes Modifying Factors: improves with: activity, coughing Associated Symptoms: reports: cough, shortness of breath, wheezing Past History - Travel Traveled outside of the country in the last 30 days: No Close contact w/someone who was outside of country & ill: No - Past Medical History Allergies/Adverse Reactions: Allergies Allergy/AdvReac Type Severity Reaction Status Date / Time ceftriaxone sodium Allergy Verified 01/22/19 15:41 [From Rocephin] hydrocodone bitartrate Allergy Itching Verified 01/22/19 15:41 [From Vicodin] all fruits Allergy Uncoded 01/22/19 15:41 Home Medications: Ambulatory Orders Albuterol 0.083% Nebulizer Jazzmine [Ventolin 0.083% Nebulizer Soln -] 1 neb NEB Q6H PRN 07/13/18 Cetirizine HCl [Zyrtec -] 10 mg PO DAILY 01/22/19 Asthma: Yes COPD: No DVT: No - Immunization History Immunization Up to Date: Yes - Suicide/Smoking/Psychosocial Hx Smoking Status: Yes Smoking History: Never smoked Years of Tobacco Use: 8 Have you smoked in the past 12 months: No Number of Cigarettes Smoked Daily: 0 If you are a former smoker, when did you quit?: 9 months Cigars Per Day: 0 'Breaking Loose' booklet given: 04/21/14 Hx Alcohol Use: No Drug/Substance Use Hx: No Substance Use Type: None Hx Substance Use Treatment: No Patient Lives Alone: No Lives with/in: spouse/SO Respiratory Specific PMHX - Complaint Specific PMHX Bronchitis: Yes Pneumonia: Yes Review of Systems - Review of Systems Able to Perform ROS?: No Is the patient limited Albanian proficient: No Respiratory: Yes: Cough, Shortness of Breath, Wheezing Cardiac (ROS): No: Symptoms Reported ABD/GI: No: Symptoms Reported : No: Symptoms Reported Musculoskeletal: No: Symptoms Reported Integumentary: No: Symptoms Reported Neurological: No: Symptoms reported Endocrine: No: Symptoms Reported *Physical Exam - Vital Signs Last Vital Signs Temp Pulse Resp BP Pulse Ox 98.5 F 89 18 110/74 99 01/22/19 15:39 01/22/19 15:39 01/22/19 15:39 01/22/19 15:39 01/22/19 15:39 - Physical Exam General Appearance: Yes: Nourished, Appropriately Dressed. No: Apparent Distress HEENT: positive: EOMI, MARLON, TMs Normal, Pharynx Normal. negative: Pale Conjunctivae Neck: positive: Supple Respiratory/Chest: positive: Accessory Muscle Use, Wheezing (on insp to right base) Cardiovascular: positive: Regular Rhythm, Regular Rate. negative: Murmur Gastrointestinal/Abdominal: positive: Soft. negative: Tenderness Integumentary: positive: Normal Color, Warm, Moist Neurologic: positive: Motor Strength 5/5 (ambulatory) ED Treatment Course - Medications Given in the ED: ED Medications Discontinued Medications Generic Name Dose Route Start Last Admin Trade Name Freq PRN Reason Stop Dose Admin Albuterol/Ipratropium 1 amp 01/22/19 15:57 01/22/19 16:04 Duoneb - NEB 01/22/19 15:58 1 amp ONCE ONE Administration Prednisone 60 mg 01/22/19 15:57 01/22/19 16:04 Deltasone - PO 01/22/19 15:58 60 mg ONCE ONE Administration Medical Decision Making - Medical Decision Making 01/22/19 16:46 CC: wheezing and coughing x 2 days, no improvement, no fever Exam: wheezing to right base, no acces muscle usage Plan: alb tx, prednisone po, and dc home with the same *DC/Admit/Observation/Transfer Diagnosis at time of Disposition: Asthma exacerbation, mild - Discharge Dispostion Disposition: HOME Condition at time of disposition: Improved - Referrals Referrals: Christin Valdivia, MS [Primary Care Provider] - - Patient Instructions Printed Discharge Instructions: Asthma -- Adult Additional Instructions: Please take Prednisone starting tomorrow. Take azithromycin until completed - Post Discharge Activity
== END 2019-01-22 16:56 | disposition home or self-care (01) ==
LOC: JERFT 15:23
PROC: 3E0F7GC Introduction of Other Therapeutic Substance into Respiratory Tract, Via Natural or Artificial Opening (ICD-10-PCS; principal; 2019-01-22)
DX: J45.21 Mild intermittent asthma with (acute) exacerbation (principal)
CPT/HCPCS: 94640; 99281-25

== ENCOUNTER 2020-07-30 23:12 | Emergency (ER) | payer OTHER ==
[2020-07-30 23:22] VITALS: BP 126/87; PULSE 103; TEMP 98.1; BMI 34.2
[2020-07-31 00:48] LABS: URINE APPEARANCE CLEAR; URINE BILIRUBIN NEGATIVE (NEGATIVE); URINE COLOR YELLOW; URINE GLUCOSE (UA) NEGATIVE (NEGATIVE); URINE KETONE NEGATIVE (NEGATIVE); URINE LEUK ESTERASE NEGATIVE (NEGATIVE); URINE NITRITE NEGATIVE (NEGATIVE); URINE PROTEIN NEGATIVE (NEGATIVE)
[2020-07-31 01:19] LABS: HCG,QUALITATIVE URINE Negative
== END 2020-07-31 01:50 | disposition home or self-care (01) ==
LOC: JER 23:12
DX: R35.0 Frequency of micturition (principal)
CPT/HCPCS: 36415; 76830-TC; 81003; 84703; 87086; 87491; 87591; 99284-25

== ENCOUNTER 2021-08-14 14:04 | Emergency (ER) | payer OTHER ==
[2021-08-14 14:25] VITALS: BP 114/65; PULSE 106; TEMP 98.1; BMI 33.2
[2021-08-14] MEDS ORDERED: SODIUM CHLORIDE 1,000 ML IV STA (14:35)
[2021-08-14] MEDS ORDERED: methylPREDNISolone NA SUCC 125 MG/2 ML VIAL IVPUSH ONE (14:35)
[2021-08-14] MEDS ORDERED: methylPREDNISolone NA SUCC 125 MG/2 ML VIAL ONE (15:19)
[2021-08-14 15:32] LABS: BASO % 0.4 % (0-2.0); EOS % 0.9 % (0-4.5); HEMATOCRIT 37.8 % (32.4-45.2); HEMOGLOBIN 12.7 GM/dL (10.7-15.3); MCH 31.3 pg (25.7-33.7); MCHC 33.6 g/dl (32.0-36.0); MEAN CELL VOLUME 93.3 fl (80-96); MEAN PLT VOLUME 8.9 fl (7.5-11.1); MONO % 4.7 % (3.8-10.2); PLATELET COUNT 343 10^3/uL (134-434); RBC 4.06 M/mm3 (3.60-5.2); RDW 12.7 % (11.6-15.6); WHITE BLOOD COUNT 10.1 K/mm3 (4.0-10.0)
[2021-08-14] MEDS: ALBUTEROL SO4 2.5/IPRATROPIUM 0.5 INH SOL 3 ML VIAL.NEB. NEB SCH ×2 (15:35→16:27)
[2021-08-14 15:39] LABS: INR 0.99 (0.83-1.09); PROTHROMBIN TIME (PATIENT) 11.6 SEC (9.7-13.0)
[2021-08-14 15:55] LABS: ALBUMIN 3.2 g/dl (3.4-5.0); BLOOD UREA NITROGEN 14.1 mg/dL (7-18)
[2021-08-14 15:58] LABS: CREATININE 0.8 mg/dL (0.55-1.3)
[2021-08-14 16:00] LABS: BILIRUBIN,TOTAL 0.5 mg/dL (0.2-1); TOT PROT 6.9 g/dl (6.4-8.2)
[2021-08-14] MEDS ORDERED: MAGNESIUM SULF 50% (8.12 MEQ/2 ML-1 GM VIAL) IVPB ONE (16:23)
[2021-08-14] MEDS ORDERED: MAGNESIUM SULFATE IN WATER 2 GM/50 ML IVPB IVPB ONE (16:23)
== END 2021-08-14 19:09 | disposition home or self-care (01) ==
LOC: JER 14:04
PROC: 3E033GC Introduction of Other Therapeutic Substance into Peripheral Vein, Percutaneous Approach (ICD-10-PCS; principal; 2021-08-14)
PROC: 3E0F7GC Introduction of Other Therapeutic Substance into Respiratory Tract, Via Natural or Artificial Opening (ICD-10-PCS; 2021-08-14)
DX: J45.901 Unspecified asthma with (acute) exacerbation (principal); Z11.52 Encounter for screening for COVID-19
CPT/HCPCS: 36415; 71046-TC-FY; 80053; 85025; 85610; 99284-25; C9803; U0003; U0005

== ENCOUNTER 2021-11-28 18:21 | Emergency (ER) | payer OTHER ==
[2021-11-28 18:43] VITALS: TEMP 97.9; BMI 33.4
[2021-11-28] MEDS ORDERED: ALBUTEROL SO4 2.5/IPRATROPIUM 0.5 INH SOL 3 ML VIAL.NEB. NEB ONE (19:00)
[2021-11-28] MEDS ORDERED: DEXAMETHASONE SOD PHOSPHATE 10 MG/1 ML VIAL IVPUSH ONE (19:32)
[2021-11-28] MEDS ORDERED: ACETAMINOPHEN 325 MG TABLET (FP) PO ONE (19:39)
[2021-11-28] MEDS ORDERED: DEXAMETHASONE 4 MG TABLET (FP) PO ONE (19:45)
[2021-11-28] MEDS ORDERED: DEXAMETHASONE SOD PHOSPHATE 10 MG/1 ML VIAL ONE (19:47)
[2021-11-28] MEDS ORDERED: ACETAMINOPHEN 325 MG TABLET (FP) ONE (19:48)
[2021-11-28] MEDS: ALBUTEROL SO4 2.5/IPRATROPIUM 0.5 INH SOL 3 ML VIAL.NEB. NEB SCH (19:56)
[2021-11-28] MEDS ORDERED: METOCLOPRAMIDE HCL 10 MG TABLET (FP) PO ONE ×2 (21:09→21:14)
[2021-11-28 22:08] VITALS: BP 108/71; PULSE 71
== END 2021-11-28 22:19 | disposition home or self-care (01) ==
LOC: JER 18:21
PROC: 3E0F7GC Introduction of Other Therapeutic Substance into Respiratory Tract, Via Natural or Artificial Opening (ICD-10-PCS; principal; 2021-11-28)
DX: J45.909 Unspecified asthma, uncomplicated (principal)
CPT/HCPCS: 71046-TC-FY; 87804; 93005; 93010; 99285-25; C9803-CS; U0003; U0005

== ENCOUNTER 2022-02-14 11:15 | Emergency (ER) | payer OTHER ==
[2022-02-14 11:45] VITALS: BP 113/79; PULSE 80; TEMP 98.2; BMI 33.4
[2022-02-14] MEDS ORDERED: ALBUTEROL SO4 2.5/IPRATROPIUM 0.5 INH SOL 3 ML VIAL.NEB. NEB ONE (12:33)
[2022-02-14] MEDS: ALBUTEROL SO4 2.5/IPRATROPIUM 0.5 INH SOL 3 ML VIAL.NEB. NEB SCH ×2 (12:37→12:38)
[2022-02-14] MEDS ORDERED: predniSONE 20 MG TABLET (UD) PO ONE (13:16)
[2022-02-14] MEDS ORDERED: predniSONE 20 MG TABLET (UD) ONE (13:36)
[2022-02-14] MEDS ORDERED: AZITHROMYCIN 250 MG TABLET PO ONE ×2 (14:00→14:05)
[2022-02-14] MEDS ORDERED: AZITHROMYCIN 250 MG TABLET ONE (14:27)
== END 2022-02-14 14:30 | disposition home or self-care (01) ==
LOC: JER 11:15
PROC: 3E0F7GC Introduction of Other Therapeutic Substance into Respiratory Tract, Via Natural or Artificial Opening (ICD-10-PCS; principal; 2022-02-14)
DX: J45.901 Unspecified asthma with (acute) exacerbation (principal)
CPT/HCPCS: 93005; 93010; 99283-25

== ENCOUNTER 2022-05-04 11:35 | Emergency (ER) | payer OTHER ==
[2022-05-04 11:42] VITALS: PULSE 105; TEMP 99.6; BMI 33.2
[2022-05-04] MEDS ORDERED: DEXAMETHASONE SOD PHOSPHATE 10 MG/1 ML VIAL IM ONE (11:55)
[2022-05-04] MEDS ORDERED: DEXAMETHASONE SOD PHOSPHATE 10 MG/1 ML VIAL ONE (11:58)
[2022-05-04] MEDS ORDERED: ALBUTEROL SO4 2.5/IPRATROPIUM 0.5 INH SOL 3 ML VIAL.NEB. NEB ONE (11:58)
[2022-05-04] MEDS: ALBUTEROL SO4 2.5/IPRATROPIUM 0.5 INH SOL 3 ML VIAL.NEB. NEB SCH ×3 (12:04→12:26)
[2022-05-04] MEDS ORDERED: SODIUM CHLORIDE FOR INHALATION 3 ML VIAL.NEB IH ONE (12:48)
[2022-05-04] MEDS ORDERED: IBUPROFEN 400 MG TABLET (FP) PO ONE ×2 (12:48→12:54)
[2022-05-04] MEDS ORDERED: ALBUTEROL SO4 0.083% IH SOL 2.5 MG/3 ML VIAL.NEB. NEB ONE ×2 (13:41→13:51)
[2022-05-04 14:52] VITALS: BP 115/78; RESP 15
== END 2022-05-04 14:52 | disposition home or self-care (01) ==
LOC: JER 11:35
PROC: 3E0F7GC Introduction of Other Therapeutic Substance into Respiratory Tract, Via Natural or Artificial Opening (ICD-10-PCS; principal; 2022-05-04)
PROC: 3E0233Z Introduction of Anti-inflammatory into Muscle, Percutaneous Approach (ICD-10-PCS; 2022-05-04)
DX: J45.909 Unspecified asthma, uncomplicated (principal); R05.1 Acute cough
CPT/HCPCS: 0241U-QW; 71045-TC-FY; 99284-25; J1100

== ENCOUNTER 2022-07-24 02:25 | Emergency (ER) | payer OTHER ==
[2022-07-24 02:36] VITALS: BP 115/81; PULSE 77; RESP 20; TEMP 98.2; BMI 33.5
[2022-07-24] MEDS ORDERED: DEXAMETHASONE SOD PHOSPHATE 10 MG/1 ML VIAL IM ONE (03:43)
[2022-07-24] MEDS ORDERED: LIDOCAINE VISCOUS 2% ORAL/TOP 15 ML UNIT-DOSE CUP MM ONE (03:44)
[2022-07-24] MEDS ORDERED: IBUPROFEN 400 MG TABLET (FP) PO ONE ×2 (03:44→03:49)
[2022-07-24] MEDS ORDERED: ALBUTEROL SO4 2.5/IPRATROPIUM 0.5 INH SOL 3 ML VIAL.NEB. NEB SCH (03:45)
[2022-07-24] MEDS ORDERED: ALBUTEROL SO4 2.5/IPRATROPIUM 0.5 INH SOL 3 ML VIAL.NEB. NEB ONE (03:48)
[2022-07-24] MEDS ORDERED: DEXAMETHASONE SOD PHOSPHATE 10 MG/1 ML VIAL ONE (03:49)
[2022-07-24] MEDS ORDERED: LIDOCAINE VISCOUS 2% ORAL/TOP 15 ML UNIT-DOSE CUP ONE (03:49)
== END 2022-07-24 04:59 | disposition home or self-care (01) ==
LOC: JER 02:25
PROC: 3E023GC Introduction of Other Therapeutic Substance into Muscle, Percutaneous Approach (ICD-10-PCS; principal; 2022-07-24)
PROC: 3E0F7GC Introduction of Other Therapeutic Substance into Respiratory Tract, Via Natural or Artificial Opening (ICD-10-PCS; 2022-07-24)
DX: J45.901 Unspecified asthma with (acute) exacerbation (principal); R07.0 Pain in throat
CPT/HCPCS: 0241U-QW; 87070; 87651; 99284-25; J1100

== ENCOUNTER 2022-12-07 17:48 | Emergency (ER) | payer OTHER ==
[2022-12-07 17:56] VITALS: BP 115/72; PULSE 92; RESP 19; BMI 34.2
[2022-12-07] MEDS ORDERED: ONDANSETRON 4 MG/2 ML VIAL IVPUSH ONE (19:24)
[2022-12-07] MEDS ORDERED: FAMOTIDINE 20 MG/50 ML IVPB 20 MG/50 ML MG IVPB ONE ×2 (19:24→19:46)
[2022-12-07] MEDS ORDERED: ONDANSETRON 4 MG/2 ML VIAL ONE (19:46)
[2022-12-07 19:54] LABS: EPI CELLS 17 /uL (0-25.1); HYALINE CASTS 0 /uL (0-3.1); URINE APPEARANCE CLEAR; URINE BACTERIA 245 /uL (0-1359); URINE BILIRUBIN NEGATIVE (NEGATIVE); URINE COLOR YELLOW; URINE GLUCOSE (UA) NEGATIVE (NEGATIVE); URINE KETONE NEGATIVE (NEGATIVE); URINE LEUK ESTERASE TRACE (NEGATIVE); URINE NITRITE NEGATIVE (NEGATIVE); URINE PROTEIN NEGATIVE (NEGATIVE); URINE RBC 13 /uL (0-23.9); URINE WBC 17 /uL (0-25.8)
[2022-12-07 20:02] LABS: BASO % 0.1 % (0-2.0); EOS % 0.1 % (0-4.5); HEMATOCRIT 38.1 % (32.4-45.2); LYMPH % 15.1 % (8-40); MCH 30.9 pg (25.7-33.7); MCHC 34.1 g/dl (32.0-36.0); MEAN CELL VOLUME 90.5 fl (80-96); MEAN PLT VOLUME 9.3 fl (7.5-11.1); NEUT % 79.7 % (42.8-82.8); PLATELET COUNT 433 10^3/uL (134-434); RBC 4.21 M/mm3 (3.60-5.2); RDW 12.2 % (11.6-15.6); WHITE BLOOD COUNT 11.5 K/mm3 (4.0-10.0)
[2022-12-07 20:14] LABS: CALCIUM 10.4 mg/dL (8.5-10.1)
[2022-12-07 20:15] LABS: BLOOD UREA NITROGEN 13.9 mg/dL (7-18); MAGNESIUM 2.2 mg/dL (1.8-2.4)
[2022-12-07 20:17] LABS: CREATININE 0.7 mg/dL (0.55-1.3); PHOSPHOROUS 4.1 mg/dL (2.5-4.9)
[2022-12-07 20:19] LABS: BILIRUBIN,TOTAL 0.2 mg/dL (0.2-1); TOT PROT 8.2 g/dl (6.4-8.2)
[2022-12-07 20:23] LABS: INR 1.06 (0.83-1.09); PROTHROMBIN TIME (PATIENT) 12.3 SEC (9.7-13.0)
[2022-12-07 20:25] LABS: ACTIVATED PTT 30.6 SECONDS (25.2-36.5)
== END 2022-12-07 22:09 | disposition home or self-care (01) ==
LOC: JER 17:48
PROC: 3E033GC Introduction of Other Therapeutic Substance into Peripheral Vein, Percutaneous Approach (ICD-10-PCS; principal; 2022-12-07)
PROC: 3E033GC Introduction of Other Therapeutic Substance into Peripheral Vein, Percutaneous Approach (ICD-10-PCS; 2022-12-07)
DX: R07.89 Other chest pain (principal); R06.02 Shortness of breath; R11.0 Nausea; M94.0 Chondrocostal junction syndrome [Tietze]; R09.81 Nasal congestion; Z20.822 Contact with and (suspected) exposure to COVID-19
CPT/HCPCS: 0241U-QW; 36415; 71046-TC-FY; 76705-TC; 80053; 81003; 83690; 83735; 83880; 84100; 84484; 84703; 85025; 85610; 85730; 87086; 93005; 93010; 99285-25

== ENCOUNTER 2024-03-07 17:48 | Emergency (ER) | payer OTHER ==
[2024-03-07 17:57] VITALS: BP 113/77; PULSE 83; RESP 20; TEMP 98.1; BMI 33.4
[2024-03-07] MEDS ORDERED: DEXAMETHASONE SOD PHOSPHATE 10 MG/1 ML VIAL ONE (19:53)
[2024-03-07] MEDS ORDERED: KETOROLAC TROMETHAMINE 30 MG/1 ML VIAL ONE (19:53)
[2024-03-07] MEDS ORDERED: ACETAMINOPHEN INJECTION 100 ML IVPB ONE (20:05)
[2024-03-07 20:12] LABS: HEMATOCRIT 38.9 % (32.4-45.2); HEMOGLOBIN 12.9 GM/dL (10.7-15.3); MCH 31.3 pg (25.7-33.7); MCHC 33.1 g/dl (32.0-36.0); MEAN CELL VOLUME 94.5 fl (80-96); MEAN PLT VOLUME 8.4 fl (7.5-11.1); PLATELET COUNT 384 10^3/uL (134-434); RBC 4.11 M/mm3 (3.60-5.2); RDW 12.6 % (11.6-15.6)
[2024-03-07 20:18] LABS: URINE APPEARANCE CLEAR; URINE BILIRUBIN NEGATIVE (NEGATIVE); URINE COLOR YELLOW; URINE GLUCOSE (UA) NEGATIVE (NEGATIVE); URINE KETONE NEGATIVE (NEGATIVE); URINE LEUK ESTERASE NEGATIVE (NEGATIVE); URINE NITRITE NEGATIVE (NEGATIVE); URINE PROTEIN NEGATIVE (NEGATIVE); URINE UROBILINOGEN 0.2 mg/dL (0.2-1.0)
[2024-03-07] MEDS: DEXAMETHASONE SOD PHOSPHATE 10 MG/1 ML VIAL IVPUSH ONE (20:19)
[2024-03-07] MEDS: KETOROLAC TROMETHAMINE 30 MG/1 ML VIAL IVPUSH ONE (20:20)
[2024-03-07] MEDS: SODIUM CHLORIDE 0.9% 500 ML INFUS.BAG IV ONE (20:20)
[2024-03-07] MEDS: ACETAMINOPHEN 1000 MG/100 ML BAG IVPB ONE (20:20)
[2024-03-07 20:21] LABS: HCG,QUALITATIVE URINE Negative
[2024-03-07 20:56] LABS: POTASSIUM 4.4 mmol/L (3.5-5.1)
[2024-03-07 20:58] LABS: ALBUMIN 3.6 g/dl (3.4-5.0)
[2024-03-07 21:01] LABS: CREATININE 0.7 mg/dL (0.55-1.3)
[2024-03-07 21:03] LABS: BILIRUBIN,TOTAL 0.4 mg/dL (0.2-1); TOT PROT 7.6 g/dl (6.4-8.2)
[2024-03-07 21:51] LABS: ANISOCYTOSIS 0; MACROCYTOSIS 0; PLATELET ESTIMATE NORMAL
== END 2024-03-07 21:46 | disposition home or self-care (01) ==
LOC: JERFT 17:48
PROC: 3E033NZ Introduction of Analgesics, Hypnotics, Sedatives into Peripheral Vein, Percutaneous Approach (ICD-10-PCS; principal; 2024-03-07)
PROC: 3E033GC Introduction of Other Therapeutic Substance into Peripheral Vein, Percutaneous Approach (ICD-10-PCS; 2024-03-07)
PROC: 3E0333Z Introduction of Anti-inflammatory into Peripheral Vein, Percutaneous Approach (ICD-10-PCS; 2024-03-07)
DX: J03.90 Acute tonsillitis, unspecified (principal)
CPT/HCPCS: 36415; 80053; 81003; 84703; 85025; 87070; 87205; 87491; 87591; 87651; 87661; 96374; 96375; 99284-25; J0131; J1100

== ENCOUNTER 2024-05-30 09:51 | Emergency (ER) | payer OTHER ==
[2024-05-30] MEDS ORDERED: IBUPROFEN 600 MG TABLET (FP) PO ONE (10:26)
[2024-05-30] MEDS: IBUPROFEN 600 MG TABLET (FP) PO ONE (10:34)
[2024-05-30] MEDS: SODIUM CHLORIDE NASAL SPRAY 44 ML BOTTLE NS ONE (10:40)
[2024-05-30 12:39] VITALS: BP 127/94; PULSE 82; RESP 20; TEMP 97.9; BMI 33.2
== END 2024-05-30 12:21 | disposition home or self-care (01) ==
LOC: JERFT 09:51
DX: J02.0 Streptococcal pharyngitis (principal); B34.9 Viral infection, unspecified; R09.81 Nasal congestion; R05.9 Cough, unspecified; R07.89 Other chest pain; Z20.822 Contact with and (suspected) exposure to COVID-19
CPT/HCPCS: 0241U-QW; 71046-TC-FY; 87651; 93005; 93010; 99285-25